=== PATIENT | female | born 1975 | race Caucasian/White ===

== ENCOUNTER 2023-05-08 09:36 | Outpatient (CLI) | payer OTHER, SELFPAY ==
--- NOTE | 2023-05-08 09:45 | CRLHL7_ITS ---
For Patients: As a result of the Cures Act, medical imaging exams and procedure reports are released immediately into your electronic medical record. You may view this report before your referring provider. If you have questions, please contact your health care provider. BILATERAL DIAGNOSTIC MAMMOGRAM WITH COMPUTER-AIDED DETECTION AND TOMOSYNTHESIS 05/08/2023 BILATERAL BREAST ULTRASOUND 05/08/2023 CLINICAL HISTORY: BILATERAL breast lumps. COMPARISON: 11/07/2020. TECHNIQUE: Digital BILATERAL mammogram in four projections. Real-time ultrasound imaging of BILATERAL breasts with imaging documentation. Scanning was performed by both the technologist and the radiologist. BREAST COMPOSITION: Scattered fibroglandular densities. FINDINGS: BILATERAL mammogram images demonstrate no evidence of suspicious mass or architectural distortion. No adenopathy or suspicious calcifications. Some asymmetry of the LEFT breast implant noted on the MLO view. Targeted BILATERAL sonogram performed in the areas of concern performed including RIGHT breast 4 o`clock 7 cm from the nipple, RIGHT breast 8 o`clock 7 cm from the nipple and LEFT breast 4-7 o`clock 7 cm from the nipple. No sonographic abnormality at the targeted areas. No fluid around the implants. IMPRESSION: No evidence of malignancy or fluid around the implants. Mild asymmetry of the LEFT breast implant on the MLO view. RECOMMENDATIONS: Consultation with plastic surgeon recommended. Routine annual BILATERAL screening mammography. BI-RADS Category 2: Benign Results and recommendations discussed with the patient. Dictated by Levon Lopez MD @ 05/08/2023 11:03:36 AM RILEY/nina DW/Dictated by: Levon Lopez MD @ 05/08/2023 11:03:00 AM (Electronically Signed)
--- NOTE | 2023-05-08 10:15 | CRLHL7_ITS ---
For Patients: As a result of the Cures Act, medical imaging exams and procedure reports are released immediately into your electronic medical record. You may view this report before your referring provider. If you have questions, please contact your health care provider. PLEASE SEE DIGITAL DIAGNOSTIC BILATERAL MAMMOGRAM PERFORMED SAME DAY CRL:arian don/Dictated by: Levon Lopez MD @ 05/08/2023 11:08:00 AM (Electronically Signed)
== END 2023-05-08 09:37 | disposition home or self-care (01) ==
LOC: MAMMO 09:37
PROVIDERS: Visit Provider Physician Assistant
DX: N63.10 Unspecified lump in the right breast, unspecified quadrant (principal); N63.20 Unspecified lump in the left breast, unspecified quadrant
CPT/HCPCS: 76642; 77066; 77067; G0279

== ENCOUNTER 2023-05-19 12:02 | Outpatient (CLI) | payer OTHER, SELFPAY | END 2023-05-19 12:03 | disposition home or self-care (01) | PROVIDERS: Visit Provider Physician Assistant | DX: Z01.419 Encounter for gynecological examination (general) (routine) without abnormal findings (principal); Z13.6 Encounter for screening for cardiovascular disorders; Z13.1 Encounter for screening for diabetes mellitus; Z13.29 Encounter for screening for other suspected endocrine disorder | CPT/HCPCS: 80061; 82947; 84439; 84443 ==

== ENCOUNTER 2023-06-26 12:45 | Outpatient (CLI) | payer OTHER, SELFPAY ==
--- NOTE | 2023-06-26 13:00 | CRLHL7_ITS ---
For Patients: As a result of the Cures Act, medical imaging exams and procedure reports are released immediately into your electronic medical record. You may view this report before your referring provider. If you have questions, please contact your health care provider. BILATERAL BREAST MRI WITHOUT AND WITH GADOLINIUM CLINICAL HISTORY: Evaluate for implant rupture. INDICATION FOR BREAST MRI: Implant integrity. COMPARISON STUDIES: Mammogram 05/08/2023. TECHNIQUE: The patient was positioned prone and scanned using a breast coil. Several imaging sequences of both breasts were obtained using 1-1.5 mm thick slices with no gap including T2-weighted and silicone selective sequences in axial and sagittal planes. FINDINGS: There are BILATERAL subpectoral silicone implants in place. Within the LEFT implant, there are findings of intracapsular rupture. No extracapsular high-signal bilaterally. No findings for intracapsular rupture on the RIGHT. IMPRESSIONS AND RECOMMENDATIONS: 1) LEFT intracapsular rupture. 2) No findings for intra- or extracapsular rupture on the RIGHT. No findings for extracapsular rupture on the LEFT. BI-RADS: Not applicable. ANGIE GARCIA M.D. Diagnostic/Breast Radiologist [email or web address] Transcribed: 11:[address]/Dictated by: Angie Garcia MD @ 06/30/2023 11:47:00 AM (Electronically Signed)
== END 2023-06-26 12:46 | disposition home or self-care (01) ==
PROVIDERS: Visit Provider Physician Assistant
DX: T85.43XA Leakage of breast prosthesis and implant, initial encounter (principal); Z98.82 Breast implant status
CPT/HCPCS: 77047

== ENCOUNTER 2023-09-04 14:33 | Outpatient (CLI) | payer OTHER, SELFPAY | END 2023-09-04 14:34 | disposition home or self-care (01) | LOC: NFLDREF 14:34 | PROVIDERS: PCP Registered Nurse; Visit Provider Registered Nurse | DX: R79.89 Other specified abnormal findings of blood chemistry (principal) | CPT/HCPCS: 84443 ==

== ENCOUNTER 2024-04-15 16:11 | Outpatient (CLI) | payer OTHER, SELFPAY ==
[2024-04-15 22:33] LABS: Chlamydia DNA Amplified* NOT DETECTED (No Detected); GC DNA Amplified* NOT DETECTED (No Detected)
== END 2024-04-15 16:12 | disposition home or self-care (01) ==
LOC: NFLDUCREF 16:11
PROVIDERS: PCP Family Medicine; Visit Provider Physician Assistant
DX: N89.8 Other specified noninflammatory disorders of vagina (principal)
CPT/HCPCS: 87086; 87186; 87491; 87591

== ENCOUNTER 2024-06-30 13:40 | Outpatient (CLI) | payer OTHER, SELFPAY | END 2024-06-30 13:41 | disposition home or self-care (01) | LOC: NFLDREF 13:45 | PROVIDERS: PCP Family Medicine; Visit Provider Physician Assistant | DX: L65.9 Nonscarring hair loss, unspecified (principal); N95.1 Menopausal and female climacteric states | CPT/HCPCS: 84443 ==

== ENCOUNTER 2024-11-11 08:32 | Outpatient (CLI) | payer OTHER, SELFPAY | END 2024-11-11 08:33 | disposition home or self-care (01) | LOC: NFLDREF 11-15 17:07 | PROVIDERS: PCP Family Medicine; Referring Provider Family Medicine; Visit Provider Family Medicine | DX: Z76.89 Persons encountering health services in other specified circumstances (principal) | CPT/HCPCS: 99001 ==

== ENCOUNTER 2025-01-20 12:27 | Outpatient (CLI) | payer OTHER, SELFPAY ==
[2025-01-21 13:40] LABS: Chlamydia DNA Amplified* NOT DETECTED (No Detected); GC DNA Amplified* NOT DETECTED (No Detected)
== END 2025-01-20 12:28 | disposition home or self-care (01) ==
PROVIDERS: PCP Family Medicine
DX: R30.0 Dysuria (principal); Z11.3 Encounter for screening for infections with a predominantly sexual mode of transmission; Z11.4 Encounter for screening for human immunodeficiency virus [HIV]; Z11.59 Encounter for screening for other viral diseases
CPT/HCPCS: 86592; 86703; 86706; 86803; 87340; 87491; 87591

== ENCOUNTER 2025-07-13 14:43 | Outpatient (CLI) | payer OTHER, SELFPAY ==
[2025-07-13 18:53] LABS: Chlamydia DNA Amplified* NOT DETECTED (No Detected); GC DNA Amplified* NOT DETECTED (No Detected)
[2025-07-15 20:58] LABS: HPV Source Cervix
[2025-07-18 10:58] LABS: Pap Test Digital Imaging Done
== END 2025-07-13 14:44 | disposition home or self-care (01) ==
PROVIDERS: PCP Family Medicine; Visit Provider Physician Assistant
DX: Z11.3 Encounter for screening for infections with a predominantly sexual mode of transmission (principal); Z12.4 Encounter for screening for malignant neoplasm of cervix
CPT/HCPCS: 87491; 87591; 87624; 87625; 88141; 88142; 88175

== ENCOUNTER 2025-07-21 15:57 | Outpatient (CLI) | payer OTHER, SELFPAY | END 2025-07-21 15:58 | disposition home or self-care (01) | LOC: NFLDREF 07-24 13:11 | PROVIDERS: PCP Family Medicine; Referring Provider Family Medicine; Visit Provider Physician Assistant | DX: Z11.3 Encounter for screening for infections with a predominantly sexual mode of transmission (principal) | CPT/HCPCS: 86703; 86780; 86803; 87340 ==